=== PATIENT | male | born 1970 ===

== ENCOUNTER 2017-07-26 08:54 | Day surgery (SDC) | payer OTHER ==
[2017-07-04 14:11] VITALS: BMI 28.0
[~2017-07-26] VITALS: Ht 182.9 cm; Wt 93.2 kg
[~2017-07-26 08:54] MED LIST: CEFAZOLIN 2000MG IV PUSH 15 ML IV SCH; LACTATED RINGER'S 1000ML 1,000 ML IV SCH
[2017-07-26 09:09] VITALS: BP 125/73; PULSE 60; TEMP 36.6; O2SAT 97; Ht 182.9 cm; Wt 93.2 kg
--- NOTE | 2017-07-26 09:24 | History & Physical Bridge Note ---
H&P Re-Evaluation Bridge Note: I have examined the patient, reviewed the History & Physical and in the interval since the performance of the History & Physical I have noted the following changes of clinical significance: No changes noted
[2017-07-26] MEDS ORDERED: no meds (09:25)
[2017-07-26] MEDS ORDERED: MIDAZOLAM HCL 1 MG/ML 2ML VIAL ONE (09:28)
[2017-07-26] MEDS ORDERED: FENTANYL CITRATE INJ 50 MCG/1 ML 2 ML VIAL ONE ×4 (09:28→11:26)
[2017-07-26] MEDS ORDERED: BUPIVACAINE/EPINEPHRINE 0.5% MPF 1:200,000 30 ML VIAL ONE (09:47)
--- NOTE | 2017-07-26 09:47 | History and Physical ---
History & Physical Date July 26, 2017. History of Present Illness The patient is a 47 year old male with complaints of right inguinal bulge that has been enlarging. He does have associated discomfort. He has had this for quite some time. Additional History Hepatic Disease: No Endocrine Disorder: No Kidney Disease: No Hypertension: No Heart Disease: No Bleeding Tendencies: No Infectious Diseases: Yes (hx of tuberculosis) Allergies Coded Allergies: No Known Allergies (Unverified , 07/04/17) Home Medications Miscellaneous Medications [no meds] Physical Examination Skin: warm/dry, no rash Eyes: EOMI, sclerae normal ENT: normal ENT inspection Head: normocephalic, atraumatic Neck: trachea midline Respiratory/Chest: no respiratory distress Cardiovascular: regular rate, rhythm Abdomen / GI: + pertinent finding (+large RIH. nonreducible) Extremities: normal inspection Neurologic/Psych: alert, oriented x 3 Diagnosis RIH Plan of Treatment We discussed his options and risks including bleeding ,infection infection of mesh requiring explant,DVT/PE/NC, chronic pain, injury to the spermatic cord, etc. All of his questions were answered. We will proceed with an open right anal hernia repair with mesh
--- NOTE | 2017-07-26 09:51 | Discharge Instructions ---
Discharge Instructions Date of Service July 26, 2017. Admission Reason for Admission: Right Inguinal Hernia Discharge Discharge Diagnosis / Problem: Right Inguinal Hernia Discharge Goals Goal(s): Decrease discomfort, Improve function Activity Recommendations Activity Limitations: as noted below Lifting Limitations: no more than 10 pounds Exercise/Sports Limitations: until after follow-up appointment May Resume Sexual Activity: after follow-up appointment Shower/Bathe: tomorrow Driving or Machine Use: resume 1 day after discharge . Instructions / Follow-Up Instructions / Follow-Up You have surgical glue, Dermabond, over your incision. You may shower tomorrow , but please do not soak or scrub your incision. For pain control- you may use 600-800mg of Ibuprofen (Advil) three times a day ( every 8 hrs) for the next 3-5 days. If you are unable to take Ibuprofen products you may use Acetaminophen (Tylenol) 1-2 tablets every 4-6 hrs for the next 3-5 days. Do not exceed more than 10 tablets in a 24 hr period. Please follow-up with Dr. Rosales in the [facility] located at [address] [place] [address]. Please call the office at [phone] to make this appointment. Please call the General Surgery Clinic with any questions or concerns. Current Hospital Diet Patient's current hospital diet: Discharge Diet Recommended Diet: Regular Diet Pending Studies Studies pending at discharge: no Medical Emergencies . Who to Call and When: Medical Emergencies: If at any time you feel your situation is an emergency, please call 911 immediately. . Non-Emergent Contact Non-Emergency issues call your: Primary Care Provider, Surgeon Call Non-Emergent contact if: temperature is above 101.5, your pain is not controlled, wound has increased drainage, wound has increased redness . "Provider Documentation" section prepared by Glenny Amaya. .
[2017-07-26] MEDS ORDERED: PROPOFOL IV EMULSION 10 MG/ML 20 ML VIAL ONE (10:43)
[2017-07-26] MEDS ORDERED: DEXAMETHASONE SOD INJ 4 MG/ML VIAL ONE (10:44)
[2017-07-26] MEDS ORDERED: LIDOCAINE HCL 2% 2 ML VIAL (20MG/ML) ONE (10:44)
[2017-07-26] MEDS ORDERED: EpHEDrine SULFATE INJ 50 MG/ML AMP ONE (10:48)
[2017-07-26] MEDS ORDERED: HYDROmorphone INJ 2 MG/ML SYR/VIAL ONE ×2 (11:15→11:54)
[2017-07-26] MEDS ORDERED: EpHEDrine SULFATE INJ 50 MG/ML AMP IV PRN (11:45)
[2017-07-26] MEDS ORDERED: PROMETHAZINE HCL INJ 6.25 MG in SODIUM CHLORIDE 0.9% 50ML 50 ML IV PRN (11:45)
[2017-07-26] MEDS ORDERED: ATROPINE SULFATE 0.1 MG/ML 5ML SYR IV PRN (11:45)
[2017-07-26] MEDS ORDERED: FENTANYL CITRATE INJ 50 MCG/1 ML 2 ML VIAL IV PRN (11:45)
[2017-07-26] MEDS ORDERED: ONDANSETRON INJ 2 MG/ML 2 ML VIAL IV PRN ×2 (11:45→12:15)
--- NOTE | 2017-07-26 11:49 | [facility] Post Operative Brief Note ---
Immediate Operative Summary Operative Date July 26, 2017. Pre-Operative Diagnosis Right Inguinal Hernia Post-Operative Diagnosis Right Inguinal Hernia with bowel incarceration. Procedure(s) Performed Open Right Inguinal Hernia Repair with Mesh ( plug/patch) ; enterolysis Surgeon Dr Rosales [employer] [employer] Surgeon(s) Glenny Amaya PA-C Estimated Blood Loss 25ml Findings Consistent with Post-Op Diagnosis Specimens none per surgeon Anesthesia Type General Complication(s) none
[2017-07-26] MEDS ORDERED: ONDANSETRON INJ 2 MG/ML 2 ML VIAL ONE (11:54)
[2017-07-26] MEDS ORDERED: KETOROLAC TROMETHAMINE 30 MG/ML VIAL ONE (11:54)
[2017-07-26] MEDS ORDERED: SODIUM CHLORIDE 0.9% 1000ML 1,000 ML IV SCH (12:04)
--- NOTE | 2017-07-26 12:09 | [facility] Operative Report ---
Operative Report Operative Date July 26, 2017. Pre-Operative Diagnosis Right Inguinal Hernia Post-Operative Diagnosis Right Inguinal Hernia with bowel incarceration. Procedure(s) Performed Open Right Inguinal Hernia Repair with Mesh ( plug/patch) ; enterolysis Surgeon Dr Rosales Contact Center Assistant Surgeon(s) Glenny Amaya PA-C Estimated Blood Loss 25ml Specimens none per surgeon Anesthesia Type General Complication(s) none Description of Procedure After informed consent was obtained the patient was taken to the operating room and placed in supine position. After successful placement of the laryngeal mask airway the abdomen and groin scrotum and penis were all sterilely prepped and draped in usual fashion. Initially I tried to reduce the very large hernia prior to making incision. I was unable to do so. I then made an inguinal incision with a 15 blade scalpel. This was carried down through the soft tissue using electrocautery. The external oblique aponeurosis was skeletonized and opened with a fresh blade. This was extended distally through the external ring using Metzenbaum scissors as well as for several centimeters proximally. Once in the inguinal canal there was an extremely large incarcerated hernia. This was a chronic hernia with thickened sac which was attached to the cord and cord structures. I was unable to delineate the hernia sac from the cord structures I therefore opened the hernia sac exposing about 8 inches of incarcerated small bowel. The small bowel was adhesed to the inside of the hernia sac which was adhesed to the cord structures. It was a rather tedious dissection but eventually I was able to sharply lyse the small bowel away from the hernia sac and dunk it back down into the abdominal cavity. This left a cord structure with a lot of bulk to it from the attached chronic sac. I was able to debulk as much of this is I safely could although again anatomy was quite difficult. Once I was satisfied with the debulking I then decided because of the large nature of the hernia the use a plug and patch technique. I placed a polypropylene plug into the hernia defect and secured it laterally to the shelving portion of Poupart's ligament and medially to the midline musculature. This was done using 0 Ethibond. Next i used a polypropylene keyholed mesh as an onlay. I secured it distally to Rahul's ligament laterally along the shelving portion of Poupart's ligament and medially along the midline musculature. The "arms" of the mesh were wrapped around behind the cord and cord structures and secured underlying muscle. This was also done with 0 Ethibond. The mesh laid nice and flat did not appear to impinge on the cord structures. There is adequate hemostasis. Thorough irrigation was performed. We injected Marcaine around the edges of the mesh for postoperative analgesia. We then closed the external oblique aponeurosis using 2-0 Vicryl in a running fashion. Soft tissue was irrigated and closed using 3-0 Vicryl for deep layers and 4-0 Monocryl for the skin. Additional Marcaine was injected around the skin and Dermabond glue was used as a dressing. The patient was extubated transferred recovery in stable condition. My physician certified ophthalmic surgical assistant was present through the entire case. She will prep the patient. She helped with wound exposure throughout the entire procedure. She helped with wound closure and dressing placement. I attest to the content of the Intraoperative Record and any orders documented therein. Any exceptions are noted below.
[2017-07-26] MEDS ORDERED: HYDROCODONE/ACETAMIN 5/325MG TAB PO PRN ×2 (12:15)
--- NOTE | 2017-07-26 12:50 | Anesthesiology Progress Note ---
Anesthesia Post Op Note Date & Time July 26, 2017 at 12:49 Vital Signs Pain Intensity: 0 Vital Signs Past 12 Hours Date Time Temp Pulse Resp B/P (MAP) Pulse Ox O2 Delivery O2 Flow Rate FiO2 07/26/17 12:43 88 16 100 07/26/17 12:43 86 16 07/26/17 12:41 133/85 07/26/17 12:38 80 16 07/26/17 12:38 82 16 100 07/26/17 12:37 93 20 130/88 99 07/26/17 12:37 92 20 07/26/17 12:32 85 17 100 07/26/17 12:32 85 17 07/26/17 12:31 136/88 07/26/17 12:27 95 16 07/26/17 12:27 95 16 100 07/26/17 12:26 124/82 07/26/17 12:22 104 21 07/26/17 12:22 104 21 100 07/26/17 12:21 133/86 07/26/17 12:17 85 14 07/26/17 12:17 86 14 100 07/26/17 12:16 120/82 07/26/17 12:12 83 17 100 07/26/17 12:12 84 17 07/26/17 12:11 113/85 07/26/17 12:08 127/78 07/26/17 12:07 36.3 84 16 127/78 (96) 99 Oxymask 10 07/26/17 09:09 36.6 60 18 125/73 (90) 97 Room Air Notes Mental Status: alert / awake / arousable, participated in evaluation Pt Amnestic to Procedure: Yes Nausea / Vomiting: adequately controlled Pain: adequately controlled Airway Patency, RR, SpO2: stable & adequate BP & HR: stable & adequate Hydration State: stable & adequate Anesthetic Complications: no major complications apparent
[2017-07-26 13:05] VITALS: BP 131/87; PULSE 85; TEMP 36.7; O2SAT 98
[2017-07-26] MEDS ORDERED: HYDROCODONE/ACETAMIN 5/325MG TAB ONE (13:32)
[2017-07-26 13:34] VITALS: BP 132/79; PULSE 80; O2SAT 100
[2017-07-26 14:00] VITALS: BP 129/73; PULSE 81; TEMP 36.2; O2SAT 99
== END 2017-07-26 14:06 | disposition home or self-care (01) ==
LOC: C.ACU 08:54
PROVIDERS: ATTEND Surgery
DX: K40.91 Unilateral inguinal hernia, without obstruction or gangrene, recurrent (principal); I10 Essential (primary) hypertension